=== PATIENT | female | born 1960 | race Caucasian/White ===

== ENCOUNTER 2020-07-28 11:37 | Inpatient (IN) | payer BC ==
[~2020-07-28] VITALS: Ht 157.5 cm; Wt 95.5 kg
[2020-07-28] VITALS (7 sets, daily range): BP systolic 122–181; BP diastolic 66–120; Ht 157.5 cm; Wt 95.5 kg
[2020-07-28 12:08] LABS: BASOPHILS 0.2 % (0-2); EOSINOPHILS 0.1 % (0-7); HEMATOCRIT 49.9 % (36.0-48.0); HEMOGLOBIN 16.4 g/dL (12-16); IMMATURE GRANULOCYTES 0.2 % (0-5); LYMPHOCYTE ABS# 1.12 10x3/uL (1.18-3.74); LYMPHOCYTES 8.6 % (15-50); MCH 30.4 pg (26.0-34.0); MCHC 32.9 g/dL (31.0-37.0); MCV 92.4 fL (80.0-100.0); MEAN PLATELET VOLUME 11.3 fL (7.4-10.4); MONOCYTES 3.7 % (2-11); NEUTROPHIL ABS# 11.36 10x3/uL (1.56-6.13); NEUTROPHILS 87.2 % (40-80); PLATELET COUNT 287 10x3/uL (130-400); RDW 13.5 % (11.5-14.5)
[2020-07-28 12:13] LABS: CALC OSMOLALITY 281 mosm/kg (275-300); CALCIUM 9.5 mg/dL (8.5-10.1); CARBON DIOXIDE 22.1 mmol/L (21.0-32.0); CHLORIDE - SERUM 108 mmol/L (98-107); GLUCOSE 110 mg/dL (74-106); POTASSIUM - SERUM 4.5 mmol/L (3.5-5.1); SODIUM 140 mmol/L (136-145); UREA NITROGEN 19 mg/dL (7-18); eGFR NON AFRICAN AMERICAN 60 mL/min (90-120)
[2020-07-28 12:28] LABS: ALBUMIN 3.9 g/dL (3.4-5.0); ALKALINE PHOSPHATASE 89 U/L (30-120); ALT (SGPT) 44 U/L (10-68); BILIRUBIN - TOTAL 0.91 mg/dL (0.2-1.3); CKMB 2.1 U/L (0.0-3.6); CREATINE KINASE 91 UL (21-215); MAGNESIUM - SERUM 2.2 mg/dL (1.8-2.4); PROTEIN - SERUM 7.4 g/dL (6.4-8.2)
[2020-07-28 12:30] LABS: TROPONIN-I < 0.017 ng/mL (0.000-0.060)
[2020-07-28 12:53] LABS: APTT 35.1 SECONDS (22.8-39.4)
[2020-07-28 12:57] LABS: INR 1.29 (0.85-1.17); PROTIME 14.9 SECONDS (11.6-15.0)
--- NOTE | 2020-07-28 16:14 | NUR ---
PT TO ROOM FROM ER VIA WHEELCHAIR. FAMILY AT BEDSIDE. CARDIZEM GTT INFUSING ON ARRIVAL. PULSE OX 94% ON ROOM AIR. HAT PLACED FOR VOID VOLUME. TELEMETRY TO BE PLACED.
--- NOTE | 2020-07-28 19:34 | NUR ---
RECIEVED UP IN BED WITH EYES OPEN. ALERT AND ORIENTED X4. UP WITH ASSIST TO BEDSIDE COMMODE. IV TO RT AC WITH CARDIZEM AT 10CC/HR. TELEMETRY IN PLACE. WILL BE NPO AFTR [place] D/T CARDIO CONSULT. DENIES ANY NEEDS AT THIS TIME.
[2020-07-29 04:15] VITALS: BP 149/81
[2020-07-29 05:36] LABS: BASOPHILS 0.2 % (0-2); EOSINOPHILS 1.1 % (0-7); HEMATOCRIT 46.6 % (36.0-48.0); HEMOGLOBIN 15.4 g/dL (12-16); IMMATURE GRANULOCYTES 0.2 % (0-5); LYMPHOCYTE ABS# 2.32 10x3/uL (1.18-3.74); LYMPHOCYTES 21.8 % (15-50); MCH 30.6 pg (26.0-34.0); MCV 92.5 fL (80.0-100.0); MEAN PLATELET VOLUME 11.7 fL (7.4-10.4); MONOCYTES 8.8 % (2-11); NEUTROPHIL ABS# 7.22 10x3/uL (1.56-6.13); NEUTROPHILS 67.9 % (40-80); PLATELET COUNT 295 10x3/uL (130-400); RBC 5.04 10x6/uL (4.00-5.40); RDW 13.5 % (11.5-14.5); WBC 10.6 10x3/uL (4.8-10.8)
[2020-07-29 05:58] LABS: ALBUMIN 3.8 g/dL (3.4-5.0); BILIRUBIN - TOTAL 1.05 mg/dL (0.2-1.3); CALCIUM 8.8 mg/dL (8.5-10.1); MAGNESIUM - SERUM 2.1 mg/dL (1.8-2.4); PROTEIN - SERUM 7.2 g/dL (6.4-8.2)
[2020-07-29 06:02] LABS: ANION GAP 13.2 mmol/L (8-16); CARBON DIOXIDE 28.2 mmol/L (21.0-32.0); CREATININE - SERUM 1.3 mg/dL (0.6-1.3); POTASSIUM - SERUM 3.4 mmol/L (3.5-5.1)
[2020-07-29 07:00] VITALS: BP 151/93
--- NOTE | 2020-07-29 11:19 | NUR ---
STOPPED CARDIZEM GTT AT THIS TIME. HR 60S AFIB
[2020-07-29 12:00] VITALS: BP 126/88
[2020-07-29 15:00] VITALS: BP 126/90
[2020-07-29 19:00] VITALS: BP 110/86
--- NOTE | 2020-07-29 19:45 | NUR ---
RECIEVED UP IN BED WITH EYES OPEN AND TV ON. ALERT AND ORIENTED X4. UP AD KULWANT. IV TO RT AC SL. TELEMETRY IN PLACE. DENIES ANY NEEDS AT THIS TIME.
[2020-07-30 04:00] VITALS: BP 145/85
[2020-07-30 06:05] LABS: ALBUMIN 3.7 g/dL (3.4-5.0); BILIRUBIN - TOTAL 0.96 mg/dL (0.2-1.3); CALCIUM 9.3 mg/dL (8.5-10.1); CARBON DIOXIDE 28.6 mmol/L (21.0-32.0); CREATININE - SERUM 1.3 mg/dL (0.6-1.3); MAGNESIUM - SERUM 2.1 mg/dL (1.8-2.4); PHOSPHOROUS 3.8 mg/dL (2.5-4.9); PROTEIN - SERUM 7.3 g/dL (6.4-8.2); T4 THYROXINE 10.1 ug/dL (4.7-13.3); THYROID STIMULATING HORMONE 1.87 uIU/mL (0.36-3.74)
[2020-07-30 06:06] LABS: POTASSIUM - SERUM 3.6 mmol/L (3.5-5.1)
[2020-07-30 07:54] VITALS: BP 140/90
[2020-07-30] MEDS ORDERED: XARELTO20 MG PO (11:22)
[2020-07-30] MEDS ORDERED: BETAPACE 80 MG80 MG PO (11:22)
[2020-07-30] MEDS ORDERED: PROTONIX40 MG PO (11:23)
[2020-07-30] MEDS ORDERED: FUROSEMIDE40 MG PO (11:23)
[2020-07-30] MEDS ORDERED: K-DUR20 MEQ PO (11:24)
[2020-07-30 11:45] VITALS: BP 146/88
--- NOTE | 2020-07-30 11:57 | MORECARE ---
CASE MANAGEMENT DISCHARGE SUMMARY PATIENT: JATINDER FRANCISCO UNIT: [id number] ADM DATE: 07/28/20 AGE: 60 : 60 SEX: F ROOM/BED: D.2118 AUTHOR: DORETHA,DOC PHYSICIAN: REFERRING PHYSICIAN: STEVEN FRENCH MD DATE OF SERVICE: 07/30/20 Case Management Discharge Planning Summary CT Patient Name: JATINDER FRANCISCO Attending MD : STEVEN BARAHONA Medical Record: [id number] Encounter : [id number] Facility : [address] [place] [address] Admission Date : 114:47 Center Discharge Date : [address] [place] [address] Date of : DC Plan ID : [id number] Age/Sex/Martia : 60/ F/S Printed on : 07/30/20 11:56 CT DCP Review Details Anticipated D/C: 07/30/2020 Expected LOS : 2 Case Status : INITIATED - Initial Reviewe: [id number] - Ghada Perkins Initial Review: 07/28/2020 Planned Disposi: 01 - Home or Self Care (Routine Discharge) Final Discharge: - Final Reviewer : : Final Review : DCP Focus Questions & Answers DCP Screen High Risk Factors: None Walking limitation: Patient stated self rated No walking limitation present? Age: 45 - 64 Prior living environment: Lives with others Disability ranking: Grade 1: No significant disability DCP Evaluation Patient and/or caregiver agree upon recommended Yes discharge plan? Patient's current cognitive status: *Oriented to person, place, situation, time and present Patient gives permission to discuss discharge Thor Francisco - brothestela - [phone] plans with: (name, relationship and number) Patient's ability to cope with chronic illness d. No chronic illness Does the patient have the ability to pay for or Yes attain post discharge needs / services? Functional screen assessment: No issues identified Physical Status: Independent with ADL's Equipment needed for post hospitalization: None Is there a likelihood that the patient will No require additional services to return to the preadmission environment? Living Arrangements: Home with others Results of this evaluation have been discussed Patient with: Patient with capacity for self-care or can be Yes cared for in same environment as prior to hospitalization? 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 Comments: She states she drives Would patient like to participate in any Care Not applicable Coordination programs (if applicable): Does the patient have electricity at home? Yes Does the patient have running water in their Yes house? Equipment in use: None Mental health screen: No mental health history Problems identified by the patient regarding None discharge: DCP Re-evaluation Would patient like to participate in any Care Not applicable Coordination programs (if applicable): [facility] JATINDER FRANCISCO MR#: [id number] /Age/Sex/[id number]-68 //F /S Attending Physician Name: STEVEN FRENCH [id number] Patient Account:[id number] [facility] Page -1 of 1 All edits/amendments must be made on the electronic document DICTATION DATE: 07/30/20 1156 MALTED MILK MASHER: EMELIA 07/30/20 1156 RPT#: [id number] DC DATE: STATUS: ADM IN [facility] [address] [place] [address] END OF REPORT
--- NOTE | 2020-07-30 12:16 | MORECARE ---
CASE MANAGEMENT DISCHARGE SUMMARY PATIENT: JATINDER FRANCISCO UNIT: [id number] ADM DATE: 07/28/20 AGE: 60 : 60 SEX: F ROOM/BED: D.5358 AUTHOR: DORETHADOC PHYSICIAN: REFERRING PHYSICIAN: STEVEN FRENCH MD DATE OF SERVICE: 07/30/20 Case Management Discharge Planning Summary CT Patient Name: JATINDER FRANCISCO Attending MD : STEVEN BARAHONA Medical Record: [id number] Encounter : [id number] Facility : [address] [place] [address] Medical Admission Date : 114:47 Center Discharge Date : [address] [place] [address] Date of : DC Plan ID : [id number] Age/Sex/Martia : 60/ F/S Printed on : 07/30/20 12:15 CT DCP Review Details Anticipated D/C: 07/30/2020 Expected LOS : 2 Case Status : INITIATED - Initial Reviewe: [id number] - Ghada Perkins Initial Review: 07/28/2020 Planned Disposi: 01 - Home or Self Care (Routine Discharge) Final Discharge: - Final Reviewer : : Final Review : Comments CT Entered Date Type Reviewer 07/30/20 11:56 CT Discharge Planning Ghada Perkins Comment CM received discharge orders. Patient states he is independent with all ADL's and AIDL's. Patient states her brother will pick her up at discharge. CM instructed on availability of home health and DME needs, she declines needs States she does not have a PCP, but will follow up with [facility] and see if they will take her on as a patient. States her insurance pays for her prescriptions. Home today with her brother, no needs identified. DCP Focus Questions & Answers DCP Screen High Risk Factors: None Walking limitation: Patient stated self rated No walking limitation present? Age: 45 - 64 Prior living environment: Lives with others Disability ranking: Grade 1: No significant disability DCP Evaluation Patient and/or caregiver agree upon recommended Yes discharge plan? Patient's current cognitive status: *Oriented to person, place, situation, time and present Patient gives permission to discuss discharge Thor Francisco - - [phone] plans with: (name, relationship and number) Patient's ability to cope with chronic illness d. No chronic illness Does the patient have the ability to pay for or Yes attain post discharge needs / services? Functional screen assessment: No issues identified Physical Status: Independent with ADL's Equipment needed for post hospitalization: None Is there a likelihood that the patient will No require additional services to return to the preadmission environment? Living Arrangements: Home with others Results of this evaluation have been discussed Patient with: Patient with capacity for self-care or can be Yes cared for in same environment as prior to hospitalization? 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 Comments: She states she drives Would patient like to participate in any Care Not applicable Coordination programs (if applicable): Does the patient have electricity at home? Yes Does the patient have running water in their Yes house? Equipment in use: None Mental health screen: No mental health history Problems identified by the patient regarding None discharge: DCP Re-evaluation Would patient like to participate in any Care Not applicable Coordination programs (if applicable): [facility] JATINDER FRANCISCO MR#: [id number] /Age/Sex/Qarmfz78-[id number]-94 /60/F /S Attending Physician Name: STEVEN FRENCH [id number] Patient Account:[id number] [facility] Page -1 of 1 All edits/amendments must be made on the electronic document DICTATION DATE: 07/30/201214 RANGE FEEDER: EMELIA 07/30/201214 RPT#: [id number] DC DATE: STATUS: ADM IN [facility] [address] [place] [address] END OF REPORT
--- NOTE | 2020-07-30 13:41 | NUR ---
DISCHARGE INSTRUCTIONS PROVIDED TO PATIENT. PRINTED COPY GIVEN. PATIENT VERBALIZED UNDERSTANDING. TRANSPORTED OUT VIA WHEELCHAIR WITH BROTHER.
--- NOTE | 2020-07-30 14:24 | MORECARE ---
CASE MANAGEMENT DISCHARGE SUMMARY PATIENT: JATINDER FRANCISCO UNIT: [id number] ADM DATE: 07/28/20 AGE: 60 : 60 SEX: F ROOM/BED: D.6708 AUTHOR: DORETHA,DOC PHYSICIAN: REFERRING PHYSICIAN: STEVEN FRENCH MD DATE OF SERVICE: 07/30/20 Case Management Discharge Planning Summary CT Patient Name: JATINDER FRANCISCO Attending MD : STEVEN BARAHONA Medical Record: [id number] Encounter : [id number] Facility : [address] [place] [address] Admission Date : 114:47 Center Discharge Date : 07/30/[address] [place] [address] Date of : DC Plan ID : [id number] Age/Sex/Martia : 60/ F/S Printed on : 07/30/20 14:23 CT DCP Review Details Anticipated D/C: 07/30/2020 Expected LOS : 2 Case Status : INITIATED - Initial Reviewe: [id number] - Ghada Perkins Initial Review: 07/28/2020 Planned Disposi: 01 - Home or Self Care (Routine Discharge) Final Discharge: - Final Reviewer : : Final Review : Comments CT Entered Date Type Reviewer 07/30/20 11:56 CT Discharge Planning Ghada Perkins Comment CM received discharge orders. Patient states he is independent with all ADL's and AIDL's. Patient states her brother will pick her up at discharge. CM instructed on availability of home health and DME needs, she declines needs States she does not have a PCP, but will follow up with [facility] and see if they will take her on as a patient. States her insurance pays for her prescriptions. Home today with her brother, no needs identified. DCP Focus Questions & Answers DCP Screen High Risk Factors: None Walking limitation: Patient stated self rated No walking limitation present? Age: 45 - 64 Prior living environment: Lives with others Disability ranking: Grade 1: No significant disability DCP Evaluation Patient and/or caregiver agree upon recommended Yes discharge plan? Patient's current cognitive status: *Oriented to person, place, situation, time and present Patient gives permission to discuss discharge Thor Francisco - brother - [phone] plans with: (name, relationship and number) Patient's ability to cope with chronic illness d. No chronic illness Does the patient have the ability to pay for or Yes attain post discharge needs / services? Functional screen assessment: No issues identified Physical Status: Independent with ADL's Equipment needed for post hospitalization: None Is there a likelihood that the patient will No require additional services to return to the preadmission environment? Living Arrangements: Home with others Results of this evaluation have been discussed Patient with: Patient with capacity for self-care or can be Yes cared for in same environment as prior to hospitalization? 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 Comments: She states she drives Would patient like to participate in any Care Not applicable Coordination programs (if applicable): Does the patient have electricity at home? Yes Does the patient have running water in their Yes house? Equipment in use: None Mental health screen: No mental health history Problems identified by the patient regarding None discharge: DCP Re-evaluation Would patient like to participate in any Care Not applicable Coordination programs (if applicable): [facility] JATINDER FRANCISCO MR#: [id number] /Age/Sex/Kksjaq09-Tzf-03 //F /S Attending Physician Name: STEVEN FRENCH [id number] Patient Account:[id number] [facility] Page -1 of 1 All edits/amendments must be made on the electronic document DICTATION DATE: 07/30/20 142 ORCHID WORKER: DM 07/30/20 142 RPT#: [id number] DC DATE:07/30/20 STATUS: DIS IN [facility] [address] [place] [address] END OF REPORT
--- NOTE | 2020-07-31 03:30 | MORECARE ---
CASE MANAGEMENT DISCHARGE SUMMARY PATIENT: JATINDER FRANCISCO UNIT: [id number] ADM DATE: 07/28/20 AGE: 60 : 60 SEX: F ROOM/BED: D.2118 AUTHOR: DORETHADOC PHYSICIAN: REFERRING PHYSICIAN: STEVEN FRENCH MD DATE OF SERVICE: 07/31/20 Case Management Discharge Planning Summary CT Patient Name: JATINDER FRANCISCO Attending MD : STEVEN BARAHONA Medical Record: [id number] Encounter : [id number] Facility : [address] [place] [address] Admission Date : 114:47 Center Discharge Date : 07/30/[address] [place] [address] Date of : DC Plan ID : [id number] Age/Sex/Martia : 60/ F/S Printed on : 07/31/20 3:29 CT DCP Review Details Anticipated D/C: 07/30/2020 Expected LOS : 2 Case Status : INITIATED - Initial Reviewe: [id number] - Ghada Perkins Initial Review: 07/28/2020 Planned Disposi: 01 - Home or Self Care (Routine Discharge) Final Discharge: - Final Reviewer : : Final Review : Comments CT Entered Date Type Reviewer 07/30/20 11:56 CT Discharge Planning Ghada Perkins Comment CM received discharge orders. Patient states he is independent with all ADL's and AIDL's. Patient states her brother will pick her up at discharge. CM instructed on availability of home health and DME needs, she declines needs States she does not have a PCP, but will follow up with [facility] and see if they will take her on as a patient. States her insurance pays for her prescriptions. Home today with her brother, no needs identified. DCP Focus Questions & Answers DCP Screen High Risk Factors: None Walking limitation: Patient stated self rated No walking limitation present? Age: 45 - 64 Prior living environment: Lives with others Disability ranking: Grade 1: No significant disability DCP Evaluation Patient's ability to cope with chronic illness d. No chronic illness Patient gives permission to discuss discharge Thor nixon - [phone] plans with: (name, relationship and number) Patient's current cognitive status: *Oriented to person, place, situation, time and present Patient and/or caregiver agree upon recommended Yes discharge plan? Physical Status: Independent with ADL's Functional screen assessment: No issues identified Does the patient have the ability to pay for or Yes attain post discharge needs / services? Living Arrangements: Home with others Is there a likelihood that the patient will No require additional services to return to the preadmission environment? Equipment needed for post hospitalization: None Baseline cognitive status: *Oriented to person, place, situation, time and present Living arrangements comments: Lives with brother, Thor Patient with capacity for self-care or can be Yes cared for in same environment as prior to hospitalization? 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 Would patient like to participate in any Care Not applicable Coordination programs (if applicable): Comments: She states she drives Does the patient have electricity at home? Yes Does the patient have running water in their Yes house? Equipment in use: None Mental health screen: No mental health history Problems identified by the patient regarding None discharge: DCP Re-evaluation Would patient like to participate in any Care Not applicable Coordination programs (if applicable): [facility] JATINDER FRANCISCO MR#: [id number] /Age/Sex/[id number]-33 //F /S Attending Physician Name: STEVEN FRENCH [id number] Patient Account:[id number] [facility] Page -1 of 1 All edits/amendments must be made on the electronic document DICTATION DATE: 07/31/20328 ACTIVE DIRECTORY ENGINEER: DM 07/31/20328 RPT#: [id number] DC DATE:07/30/20 STATUS: DIS IN [facility] [address] [place] [address] END OF REPORT
== END 2020-07-30 13:41 | disposition home or self-care (01) | DRG 291 ==
LOC: D.ER 11:37 → D.M2 14:47
PROVIDERS: Emergency Medicine; ADMIT Emergency Medicine; ATTEND Emergency Medicine
DX: I11.0 Hypertensive heart disease with heart failure (principal); I50.31 Acute diastolic (congestive) heart failure; I48.20 Chronic atrial fibrillation, unspecified; E66.3 Overweight; Z68.38 Body mass index [BMI] 38.0-38.9, adult

== ENCOUNTER 2020-09-01 12:29 | Day surgery (SDC) | payer MEDICAID ==
[~2020-09-01] VITALS: Ht 157.5 cm; Wt 95.5 kg
--- NOTE | ~2020-09-01 | HEMODYNAMI ---
PATIENT:JATINDER FRANCISCO MEDICAL RECORD: [id number] : 60 LOCATION:[facility] ADMISSION DATE: 09/01/20 Generatedon:113:34 Patient name: JATINDER FRANCISCO Patient #: [id number] SSN: [id number] : 1960 Date of study: 09/01/2020 Page: Of Hemodynamic Procedure Report Patient Data Patient Demographics Procedure consent was obtained First Name: JATINDER Gender: Female Last Name: NOLAN : 1960 Patient #: [id number] Age: 60 year(s) Race: SSN: [id number] Additional ID: [id number] Contact details Address: [place] [address] State: [place] City: [place] Zip code: [address] Past Medical History Allergies: No known allergies Admission Admission Data Admission Date: 09/01/2020 Admission Time: 12:29 Arrival Date: 09/01/2020 Arrival Time: 0:00 Admit Source: Other Insurance Payor: Private health insurance [facility] #: [id number] Height (in.): 63 BSA: 1.95 (m2) Height (cm.): 160.02 BMI: 36.31 (kg/m2) Weight (lbs.): 205 Weight (kg.): 92.99 Lab Results Lab Result Date: 09/01/2020 Lab Result Time: 0:00 Biochemistry Name Units Result Min Max BUN mg/dl 21 --(----)-* 7 18 Creatinine mg/dl 1.2 --(---*)-- 0.6 1.3 eGFR ml/min 48 *-(----)-- 90 120 NONAFRICAN CBC Name Units Result Min Max Hematocrit % 47.4 --(-*--)-- 42 54 Hemoglobin g/dl 16.2 --(--*-)-- 13.5 17.5 Procedure Procedure Types Cath Procedure Diagnostic Procedure Cardioversion External Procedure Description Procedure Date Procedure Date: 09/01/2020 Procedure Start Time: 13:26 Procedure End Time: 13:30 Procedure Staff Name Function Maximino Sarah MD Performing Physician Lenny Loyola CRNA Additional personnel Charlotte Colon RT Monitor Mica York RN Nurse Procedure Data Cath Procedure Estimated blood loss: 0 ml Procedure Complications No complications Procedure Medications Medication Administration Route Dosage Oxygen etCO2 Nasal cannula 2 l/min 0.9% NaCl I.V. 100 ml/hr Refer to Anesthesia Notes for Sedation Medications Hemodynamics Rest BSA: 1.95 (m2) HGB: 16.2 (g/dl) O2 Consumption: Estimated: 147.18 (ml/min) O2 Consumption indexed: Estimated:75.48 (ml/min/m) Heart Rate: 19 (bpm) Snapshots Pre Cath Intra NCS Post Cath Vital Signs Time Heart Resp SPO2 etCO2 NIBP (mmHg) Rhythm Pain Sedation Rate (ipm) (%) (mmHg) Status Level (bpm) 13:23:40 83 21 99 38.5 155/117(130) NSR (Missing) 10(A) 13:27:51 95 19 100 36.9 158/98(126) NSR (Missing) 10(A) 13:33:11 55 12 100 39.2 107/62(77) NSR (Missing) 10(A) Medications Time Medication Route Dose Verified Delivered Reason Notes Effective ness by by 13:21:46 Oxygen etCO2 2 Mica Mica for low Nasal l/min Chela York, 02 sats cannula RN RN 13:22:16 0.9% NaCl I.V. 100 Mica Mica Per ml/hr Chela York, physician RN RN 13:22:25 Refer to Mica Mica Anesthesia Chela York, Notes for RN RN Sedation Medications Procedure Log Time Note 12:29:44 Informed consent obtained and on chart 12:30:02 Diagnostic Cath Status : Elective 12:30:09 Arrival Date: 09/01/2020 12:00:00 AM 12:30:10 Admit Source: Other 12:30:13 Insurance Payor : Private health insurance 12:31:00 Patient Height : 63 inches 12:31:03 Patient Weight : 205 lbs 12:32:39 ACC Patient presents with Stable Angina CCS Anginal Class 2--Slight limitation of ordinary activity. 12:33:01 Procedure Status Cardioversion. 12:35:36 Time tracking: Regular hours (M-F 7:00 - 5:00) 12:35:40 Plan of Care:Hemodynamics will remain stable., Cardiac rhythm will remain stable., Comfort level will be maintained., Respiratory function will remain adequate., Patient/ family verbilizes understanding of procedure., Procedure tolerated without complication., Recovers from procedure without complications.. 12:36:02 H&P Date Dictated: 08/20/2020 Within 30 days and on chart.. 12:36:05 Family in waiting room. 12:36:07 Patient NPO since Midnight. 12:36:11 Alarms reviewed by R. N. 12:36:11 Sharps counted by scrub and verified by R.N. 12:47:28 Lab results pending. 12:47:31 Stress Test: no; N/A ? 13:09:28 Mica York RN sent for patient. Start room use. 13:18:11 Patient received from Pre/Post Procedure Room to CCL 3 Alert and oriented. Tansferred to table in Supine position. 13:18:17 Warm blankets applied, and elizabeth hugger turned on for patient comfort. 13:18:17 Correct patient and procedure confirmed by team. 13:18:18 ECG and BP/O2 sat monitors applied to patient. 13:18:22 Pre-procedure instructions explained to patient. 13:18:22 Pre-op teaching completed and patient verbalized understanding. 13:18:32 Patient allergic to No known allergies 13:18:58 Is the patient allergic to Iodine/contrast media? No. 13:19:00 Was the patient premedicated? No 13:19:11 Full Disclosure recording started 13:19:55 ----Pre-sedation anethsthesia assessment.---- 13:19:57 Previous problem with sedation/anesthesia? No ? 13:19:59 Snore? No 13:20:00 Lenny Loyola CRNA present and monitoring patient for TIVA. 13:20:10 Sleep apnea? No 13:20:11 Deviated septum? No 13:20:12 Opens mouth fully? Yes 13:20:14 Sticks out tongue? Yes 13:20:18 Airway obstruction? No ? 13:20:20 Dentures? No ? 13:20:33 Is patient on blood thinner?Yes 13:20:36 ACC The patient was administered the following blood thiners within the last 24 hours: Xarelto 13:20:40 Patient diabetic? No. 13:20:42 If diabetic: On Metformin? N/A 13:20:46 Patient not . Patient is over age 55. 13:20:54 Patient pain scale 0/10 ?. 13:20:58 IV patent on arrival in left antecubital with 0.9% NaCl at [facility]. 13:21:46 Oxygen 2 l/min etCO2 Nasal cannula was administered by Mica York RN; for low 02 sats; Verbal order read back and verified. 13:22:16 0.9% NaCl 100 ml/hr I.V. was administered by Mica York RN; Per physician; Verbal order read back and verified. 13::25 Refer to Anesthesia Notes for Sedation Medications was administered by Mica York RN; ; Verbal order read back and verified. 13::31 Lab Result : Hemoglobin 16.2 g/dl 13::31 Lab Result : Creatinine 1.2 mg/dl 13::31 Lab Result : BUN 21 mg/dl 13::31 Lab Result : eGFR NONAFRICAN 48 ml/min 13::31 Lab Result : Hematocrit 47.4 % 13::35 Vital chart was started 13::44 Baseline sample Acquired. 13::47 Rhythm: atrial fibrillation 13:23:09 Quick Combo opened to sterile field. 13::21 --------ALL STOP TIME OUT------ : Final Timeout: patient, procedure, and site verified with staff and physician. All members of the team are in agreement. 13::27 Fire Safety Assessment: A--An alcohol-based skin anteseptic being used preoperatively., C--Open oxygen or nitrous oxide is being used., D--An ESU, laser, or fiber-optic light is being used. 13::31 Physical assessment completed. ASA score P 2 - A patient with mild systemic disease as per Maximino Sarah MD. 13::35 Sedation plan: TIVA Medication:Propofol 13:27:00 Procedure started. 13:27:07 ------Cardioversion------ 13:27:08 Quick combo pads placed on patients chest and back. 13:28:24 Defibrillator synced and charged to 200 Joules. 13:28:30 Shock delivered. 13:28:40 Patient cardioverted to sinus rhythm . 13:28:51 Procedure ended.(Physican Out) 13:29:08 Post Procedure Pulses reassessed and unchanged 13:29:13 Post-procedure physical assessment completed. ASA score P 2 - A patient with mild systemic disease as per Maximino Sarah MD. 13:29:17 Post procedure rhythm: sinus rhythm 13:29:19 Estimated blood loss: 0 ml 13:29:20 Post procedure instruction explained to patient.Patient verbalizes understanding. 13:29:21 Patient needs reinforcement of post procedure teaching. 13:29:31 Procedure type changed to Cath procedure, Diagnostic procedure, Cardioversion External 13:29:48 Procedure and supply charges have been captured, reviewed, submitted and are correct. 13:29:52 Procedure Complication : No complications 13:29:56 Vital chart was stopped 13:30:02 Operative report dictated upon procedure completion. 13:30:03 See physician's report for complete and final results. 13:30:05 Report given to Pre/Post Procedure Room. 13:30:08 Patient transfered to Pre/Post Procedure Room with Stretcher. 13:30:11 Procedure ended. 13:30:11 Full Disclosure recording stopped 13:31:13 End room use (Document Last) 13:31:23 End room use (Document Last) 13:31:51 End room use (Document Last) 13:32:59 Vital chart was started 13:34:18 Vital chart was stopped Device Usage Item Manufacture Quantity Catalog Hospital Part Current Minimal Lot# / Name Number Charge Number Stock Stock Phui al# Code [id number] 1 [id number] Combo Signature Audit [place] Stage Time Signature Unsigned Intra-Procedure 09/01/2020 Charlotte Colon 1:31:23 PM RT(R) Intra-Procedure 09/01/2020 Mica York, 1:31:51 PM RN Intra-Procedure 09/01/2020 Maximino Sarah MD 1:34:16 PM [place] [id number] [place] [id number]
[~2020-09-01 12:29] MED LIST: BETAPACE 80 MG80 MG PO; FUROSEMIDE40 MG PO; K-DUR20 MEQ PO; PROTONIX40 MG PO; XARELTO20 MG PO
[2020-09-01] MEDS ORDERED: CO Q1060 MG PO (12:47)
[2020-09-01] MEDS ORDERED: MAG-OX 400 MG400 MG PO (12:47)
[2020-09-01] MEDS ORDERED: VITAMIN D325 MC1 PO (12:48)
[2020-09-01] MEDS ORDERED: CO Q-10100 MG PO (12:51)
[2020-09-01] MEDS ORDERED: MAGNESIUM OXID250 MG PO (12:51)
[2020-09-01 13:00] VITALS: BP 147/99; Ht 157.5 cm; Wt 95.5 kg
[2020-09-01 13:17] LABS: BASOPHILS 0.2 % (0-2); EOSINOPHILS 0.6 % (0-7); HEMATOCRIT 47.4 % (36.0-48.0); HEMOGLOBIN 16.2 g/dL (12-16); IMMATURE GRANULOCYTES 0.3 % (0-5); LYMPHOCYTE ABS# 1.75 10x3/uL (1.18-3.74); LYMPHOCYTES 27.4 % (15-50); MCH 30.7 pg (26.0-34.0); MCHC 34.2 g/dL (31.0-37.0); MCV 89.9 fL (80.0-100.0); MEAN PLATELET VOLUME 11.6 fL (7.4-10.4); MONOCYTES 6.1 % (2-11); NEUTROPHIL ABS# 4.17 10x3/uL (1.56-6.13); NEUTROPHILS 65.4 % (40-80); PLATELET COUNT 205 10x3/uL (130-400); RBC 5.27 10x6/uL (4.00-5.40); WBC 6.4 10x3/uL (4.8-10.8)
[2020-09-01 13:19] LABS: ANION GAP 11.2 mmol/L (8-16); CALCIUM 9.4 mg/dL (8.5-10.1); CARBON DIOXIDE 28.2 mmol/L (21.0-32.0); CREATININE - SERUM 1.2 mg/dL (0.6-1.3); POTASSIUM - SERUM 4.4 mmol/L (3.5-5.1)
[2020-09-01 13:21] LABS: INR 1.29 (0.85-1.17); PROTIME 14.9 SECONDS (11.6-15.0)
--- NOTE | 2020-09-01 13:40 | NUR ---
PT ARRIVED BY STRETCHER. PLACED ON MONITORS. ASSESSMENT COMPLETED. VSS AT THIS TIME. CALL LIGHT WITHIN REACH.
--- NOTE | 2020-09-01 13:55 | NUR ---
PT RESTING COMFORTABLY. VSS AT THIS TIME. CALL LIGHT WITHIN REACH. HR STILL SB RATE 52. PT DENIES NAUSEA/PAIN. SET UP WITH SANDWICH AND DRINK AT THIS TIME.
--- NOTE | 2020-09-01 14:25 | NUR ---
PT IN SB. HR 59. NO NEEDS. DENIES NAUSEA/PAIN.
--- NOTE | 2020-09-01 14:30 | NUR ---
DR. SHAH ROUNDED AND SPOKE WITH PT AND PT'S FAMILY.
--- NOTE | 2020-09-01 14:35 | NUR ---
PIV D/C'D WITH CATH TIP INTACT. TOLERATED WELL. PT INSTRUCTED TO GET UP AND DRESSED AT THIS TIME. NO ASSISTANCE NEEDED. CALL LIGHT WITHIN REACH.
--- NOTE | 2020-09-01 14:40 | NUR ---
PT AMBULATED TO RESTROOM. VOIDED WITHOUT DIFFICULTY. STEADY GAIT NOTED. DISCUSSED DISCHARGE INSTRUCTIONS WITH PT. SHE VOICED UNDERSTANDING.
--- NOTE | 2020-09-01 14:50 | NUR ---
PT TAKEN OUT TO VEHICLE BY WHEELCHAIR. NO S/S OF DISTRESS NOTED. ALL BELONGINGS AND PAPERWORK IN HAND.
== END 2020-09-01 14:50 | disposition home or self-care (01) ==
LOC: D.CATH 12:29
PROVIDERS: ATTEND Internal Medicine Cardiovascular Disease
DX: I48.91 Unspecified atrial fibrillation (principal); R06.00 Dyspnea, unspecified